=== PATIENT | male | born 1930 | race Caucasian/White ===

== ENCOUNTER 2016-12-16 16:50 | Inpatient (IN) | payer MEDICARE, BC ==
[~2016-12-16] VITALS: Ht 175.3 cm; Wt 62.1 kg
[~2016-12-16 16:50] MED LIST: ACET-868 PO; ALLO100T PO; AMIN30LI2 PO; ASCO500T9 PO; ASPI325T2 PO; ATEN50TA PO; ATOR40TA PO; CLON0.1T PO; CRAN450T3 PO; ENOX30DI SQ; FOLI1TAB16 PO; ONDA4SOL2 PO; PANT40TA2 PO; ZOLP5TAB7 PO
[2016-12-16] MEDS ORDERED: ALBUTEROL FS 2.5 MG/3 ML VIAL.NEB CONTNEB ONE (17:30)
[2016-12-16 17:49] LABS: BASOPHILS # (AUTO) 0.1 /CMM (0.0-0.2); BASOPHILS % (AUTO) 0.7 % (0.0-2.0); DIFF TOTAL % 100 %; EOSINOPHILS # (AUTO) 0.1 /CMM (0.0-0.7); EOSINOPHILS % (AUTO) 1.1 % (0.0-6.0); HEMATOCRIT 41 % (39-51); HEMOGLOBIN 13.3 g/dL (13.5-17.5); LYMPHOCYTES # (AUTO) 1.7 /CMM (0.8-4.8); LYMPHOCYTES % (AUTO) 23.1 % (20.0-44.0); MEAN CORPUSCULAR HEMOGLOBIN 28 PG (26.0-33.0); MEAN CORPUSCULAR HGB CONC 33 g/dl (31.0-36.0); MEAN CORPUSCULAR VOLUME 87 fL (80-96); MONOCYTES # (AUTO) 0.3 /CMM (0.1-1.30); NEUTROPHILS # (AUTO) 5.3 /CMM (1.8-8.9); NEUTROPHILS % (AUTO) 71.1 % (43.0-81.0); PLATELET COUNT (AUTO) 184 /CMM (150-450); RED BLOOD CELL COUNT(AUTO) 4.68 MIL/uL (4.5-6.0); WHITE BLOOD COUNT (AUTO) 7.5 K/uL (4.3-11.0)
[2016-12-16] MEDS ORDERED: ALBUTEROL FS 2.5 MG/3 ML VIAL.NEB ONE (17:58)
[2016-12-16 18:00] LABS: ANION GAP 12 (5-14); CALCIUM, SERUM 8.4 mg/dL (8.5-10.1); CARBON DIOXIDE 27 mmol/L (21-32); CHLORIDE 106 mmol/L (98-107); CREATININE 1.5 mg/dL (0.6-1.3); GLUCOSE 109 mg/dL (74-106); POTASSIUM 3.5 mmol/L (3.5-5.1); SODIUM SERUM 142 mmol/L (136-145); UREA NITROGEN, BLOOD 21 mg/dL (7-18)
[2016-12-16 18:08] LABS: TROPONIN I < 0.017 ng/mL (0.00-0.056)
[2016-12-16 18:46] LABS: *LACTIC ACID REFLEX FLAG YES; LACTIC ACID 2.2 mmol/L (0.4-2.0)
[2016-12-16] MEDS ORDERED: ASPIRIN 81 MG TAB.CHEW ONE (19:28)
[2016-12-16] MEDS ORDERED: FUROSEMIDE 40 MG/4 ML VIAL ONE (19:28)
[2016-12-16] MEDS ORDERED: ASPIRIN 81 MG TAB.CHEW PO ONE (19:30)
[2016-12-16] MEDS ORDERED: FUROSEMIDE 40 MG/4 ML VIAL IV ONE (19:30)
[2016-12-16 20:43] LABS: BILIRUBIN,DIRECT 0.2 mg/dL (0.0-0.2); BILIRUBIN,TOTAL 0.5 mg/dL (0.2-1.0)
[2016-12-16 21:00] VITALS: BP 121/59
[2016-12-16 21:05] VITALS: BP 121/59
[2016-12-16] MEDS ORDERED: ACETAMINOPHEN 325 MG TABLET PO PRN (22:30)
[2016-12-16] MEDS ORDERED: ZOLPIDEM TARTRATE 5 MG TABLET PO PRN (22:30)
[2016-12-16] MEDS ORDERED: ENOXAPARIN SODIUM 40 MG/0.4 ML DISP.SYRIN SQ SCH (22:30)
[2016-12-16] MEDS ORDERED: ONDANSETRON HCL/PF 4 MG/2 ML VIAL IVP PRN (22:30)
[2016-12-16] MEDS ORDERED: BUMETANIDE INJ 4 MG in IV NS 0.9% 24 ML IV ONE (22:30)
[2016-12-16] MEDS ORDERED: CLONIDINE HCL 0.1 MG TABLET PO PRN (22:30)
[2016-12-16] MEDS ORDERED: ONDANSETRON HCL 4 MG/5 ML SOLUTION PO PRN (22:30)
[2016-12-16] MEDS ORDERED: HYDROCODONE/APAP 5/325MG 1 EACH TABLET PO PRN (22:30)
[2016-12-16] MEDS ORDERED: ENOXAPARIN SODIUM 40 MG/0.4 ML DISP.SYRIN SQ ONE (22:50)
[2016-12-16] MEDS ORDERED: BUMETANIDE INJ 0.25 MG/ML VIAL ONE ×2 (22:50→22:55)
[2016-12-16] MEDS ORDERED: SECONDARY IV SET 1 EA INFUS.SET MC ONE (22:56)
[2016-12-16] MEDS ORDERED: IV NS 0.9% 250 ML IV ONE (22:56)
[2016-12-16] MEDS ORDERED: IV SET PRIMARY PUMP SET 1 EA INFUS.SET MC ONE (22:56)
[2016-12-16] MEDS ORDERED: IV NS 0.9% 50 ML IV ONE (22:56)
[2016-12-17] VITALS (7 sets, daily range): BP systolic 105–150; BP diastolic 63–77
[2016-12-17 07:03] LABS: BASOPHILS % (AUTO) 0.2 % (0.0-2.0); DIFF TOTAL % 100 %; EOSINOPHILS # (AUTO) 0.1 /CMM (0.0-0.7); EOSINOPHILS % (AUTO) 0.7 % (0.0-6.0); HEMATOCRIT 40 % (39-51); HEMOGLOBIN 12.8 g/dL (13.5-17.5); LYMPHOCYTES # (AUTO) 2.1 /CMM (0.8-4.8); LYMPHOCYTES % (AUTO) 23.6 % (20.0-44.0); MEAN CORPUSCULAR HEMOGLOBIN 28 PG (26.0-33.0); MEAN CORPUSCULAR HGB CONC 32 g/dl (31.0-36.0); MEAN CORPUSCULAR VOLUME 88 fL (80-96); MONOCYTES # (AUTO) 0.4 /CMM (0.1-1.30); NEUTROPHILS # (AUTO) 6.3 /CMM (1.8-8.9); NEUTROPHILS % (AUTO) 70.5 % (43.0-81.0); PLATELET COUNT (AUTO) 189 /CMM (150-450); WHITE BLOOD COUNT (AUTO) 8.9 K/uL (4.3-11.0)
[2016-12-17 07:16] LABS: POTASSIUM 2.9 mmol/L (3.5-5.1)
[2016-12-17 07:27] LABS: ALBUMIN 2.8 g/dL (3.4-5.0); BILIRUBIN,TOTAL 0.5 mg/dL (0.2-1.0); CALCIUM, SERUM 8.1 mg/dL (8.5-10.1); CREATININE 1.4 mg/dL (0.6-1.3); PHOSPHORUS 4.2 mg/dL (2.5-4.9); TOTAL PROTEIN, SERUM 7.4 g/dL (6.4-8.2)
[2016-12-17 07:32] LABS: THYROID STIMULATING HORMONE 2.499 uIU/mL (0.358-3.74)
[2016-12-17] MEDS: FOLIC ACID 1 MG TABLET PO SCH (09:29)
[2016-12-17] MEDS: ALLOPURINOL 100 MG TABLET PO SCH (09:29)
[2016-12-17] MEDS: ASPIRIN 325 MG TABLET PO SCH (09:29)
[2016-12-17] MEDS: ATENOLOL 50 MG TABLET PO SCH (09:30)
[2016-12-17] MEDS: PANTOPRAZOLE 40 MG TABLET.DR PO SCH (09:30)
[2016-12-17] MEDS: POTASSIUM CHLORIDE 20 MEQ TAB.PRT.SR PO SCH ×3 (13:53→20:52)
[2016-12-17] MEDS ORDERED: MIRT15TA7 PO (14:21)
[2016-12-17] MEDS ORDERED: TAMS-12 PO (14:21)
[2016-12-17] MEDS ORDERED: DONE10TA44 PO (14:21)
[2016-12-17] MEDS ORDERED: FLUD0.1T PO (14:23)
[2016-12-17] MEDS: ATORVASTATIN 40 MG TABLET PO SCH (21:45)
[2016-12-17] MEDS: ENOXAPARIN SODIUM 30 MG/0.3 ML DISP.SYRIN SQ SCH (21:46)
[2016-12-18] VITALS: BP 124/69
[2016-12-18 04:00] VITALS: BP 127/74
[2016-12-18 07:03] VITALS: BP 118/67
[2016-12-18 08:00] VITALS: BP 118/67
[2016-12-18 09:08] LABS: CALCIUM, SERUM 8.4 mg/dL (8.5-10.1); CREATININE 1.3 mg/dL (0.6-1.3); POTASSIUM 4.4 mmol/L (3.5-5.1)
[2016-12-18] MEDS: ASPIRIN 325 MG TABLET PO SCH (09:23)
[2016-12-18] MEDS: ATENOLOL 50 MG TABLET PO SCH (09:24)
[2016-12-18] MEDS: FOLIC ACID 1 MG TABLET PO SCH (09:25)
[2016-12-18] MEDS: PANTOPRAZOLE 40 MG TABLET.DR PO SCH (09:25)
[2016-12-18] MEDS: ALLOPURINOL 100 MG TABLET PO SCH (09:25)
[2016-12-18 16:00] VITALS: BP 120/65
[2016-12-18] MEDS ORDERED: FUROSEMIDE 40 MG/4 ML VIAL IV ONE (16:00)
[2016-12-18 20:00] VITALS: BP 104/62
[2016-12-18] MEDS: ATORVASTATIN 40 MG TABLET PO SCH (21:34)
[2016-12-18] MEDS: ENOXAPARIN SODIUM 30 MG/0.3 ML DISP.SYRIN SQ SCH (21:34)
[2016-12-19 07:40] LABS: CALCIUM, SERUM 8.5 mg/dL (8.5-10.1); CREATININE 1.4 mg/dL (0.6-1.3); POTASSIUM 4.3 mmol/L (3.5-5.1)
[2016-12-19 08:00] VITALS: BP 103/62
[2016-12-19] MEDS: ATENOLOL 50 MG TABLET PO SCH (09:00)
[2016-12-19] MEDS: ASPIRIN 325 MG TABLET PO SCH (09:22)
[2016-12-19] MEDS: FOLIC ACID 1 MG TABLET PO SCH (09:22)
[2016-12-19] MEDS: PANTOPRAZOLE 40 MG TABLET.DR PO SCH (09:22)
[2016-12-19] MEDS: ALLOPURINOL 100 MG TABLET PO SCH (09:23)
[2016-12-19 16:00] VITALS: BP 103/61
[2016-12-19 20:00] VITALS: BP 110/69
[2016-12-19] MEDS: ATORVASTATIN 40 MG TABLET PO SCH (21:07)
[2016-12-19] MEDS: ENOXAPARIN SODIUM 30 MG/0.3 ML DISP.SYRIN SQ SCH (21:09)
[2016-12-20 08:00] VITALS: BP 138/72
[2016-12-20 08:02] LABS: CALCIUM, SERUM 8.9 mg/dL (8.5-10.1); CREATININE 1.5 mg/dL (0.6-1.3); POTASSIUM 4.5 mmol/L (3.5-5.1)
[2016-12-20] MEDS: ASPIRIN 325 MG TABLET PO SCH (09:05)
[2016-12-20] MEDS: FOLIC ACID 1 MG TABLET PO SCH (09:05)
[2016-12-20] MEDS: ATENOLOL 50 MG TABLET PO SCH (09:06)
[2016-12-20] MEDS: ALLOPURINOL 100 MG TABLET PO SCH (09:06)
[2016-12-20] MEDS: PANTOPRAZOLE 40 MG TABLET.DR PO SCH (09:07)
[2016-12-20] MEDS ORDERED: FUROSEMIDE 20 MG/2 ML VIAL IV ONE (10:30)
[2016-12-20 16:00] VITALS: BP 101/61
[2016-12-20 20:00] VITALS: BP 125/70
== END 2016-12-20 20:20 | disposition home health service (06) | DRG 291 ==
LOC: EDSEX 16:54 → ER 16:54 → TELE 21:18 → MED 12-18 10:48
PROVIDERS: ADMIT Nurse Practitioner Acute Care; ATTEND Nurse Practitioner Acute Care
DX: I13.0 Hypertensive heart and chronic kidney disease with heart failure and stage 1 through stage 4 chronic kidney disease, or unspecified chronic kidney disease (principal); I50.31 Acute diastolic (congestive) heart failure; N17.9 Acute kidney failure, unspecified; E87.2 Acidosis; N39.0 Urinary tract infection, site not specified; J98.11 Atelectasis; N18.9 Chronic kidney disease, unspecified; E78.5 Hyperlipidemia, unspecified; I25.10 Atherosclerotic heart disease of native coronary artery without angina pectoris; R09.02 Hypoxemia; F03.90 Unspecified dementia, unspecified severity, without behavioral disturbance, psychotic disturbance, mood disturbance, and anxiety; H40.9 Unspecified glaucoma; N40.0 Benign prostatic hyperplasia without lower urinary tract symptoms; I34.0 Nonrheumatic mitral (valve) insufficiency; E87.6 Hypokalemia; E78.00 Pure hypercholesterolemia, unspecified
CPT/HCPCS: 36415; 71010-TC; 80048-TC; 80053-TC; 80061-TC; 82247-TC; 82248-TC; 83540-TC; 83605-TC; 83735-TC; 83880; 84100-TC; 84443-TC; 84484-TC; 85025-TC; 87040-TC; 87081-TC; 87400; 93307-TC; 94799-TC; 97001-TC; 97116-TC; 97530-TC; A4216; A4606; J1650; J1940; J3490; J7030; J7050; Q0162; Z7610

== ENCOUNTER 2017-01-02 09:48 | Inpatient (IN) | payer MEDICARE, BC ==
[~2017-01-02] VITALS: Ht 182.9 cm; Wt 61.7 kg
[~2017-01-02 09:48] MED LIST changes: -AMIN30LI2 PO; -ASCO500T9 PO; -CRAN450T3 PO; +DONE10TA44 PO; +FLUD0.1T PO; +MIRT15TA7 PO; +TAMS-12 PO
[2017-01-02] MEDS ORDERED: IV NS 0.9% 1,000 ML ONE ×2 (10:17→11:58)
[2017-01-02] MEDS ORDERED: FURO40TA5 PO (10:23)
[2017-01-02] MEDS ORDERED: ATOR10TA PO (10:23)
[2017-01-02] MEDS ORDERED: IV NS 0.9% 1,000 ML BAG IV ONE ×2 (10:30→12:00)
[2017-01-02] MEDS ORDERED: LIDOCAINE 2% JEL UROJET 10 ML MM ONE ×2 (10:46→11:00)
[2017-01-02 11:22] LABS: BASOPHILS # (AUTO) 0.2 /CMM (0.0-0.2); BASOPHILS % (AUTO) 1.4 % (0.0-2.0); DIFF TOTAL % 100 %; EOSINOPHILS # (AUTO) 0.2 /CMM (0.0-0.7); EOSINOPHILS % (AUTO) 0.9 % (0.0-6.0); HEMATOCRIT 50 % (39-51); HEMOGLOBIN 16.3 g/dL (13.5-17.5); LYMPHOCYTES # (AUTO) 2.1 /CMM (0.8-4.8); LYMPHOCYTES % (AUTO) 12.6 % (20.0-44.0); MEAN CORPUSCULAR HEMOGLOBIN 29 PG (26.0-33.0); MEAN CORPUSCULAR HGB CONC 33 g/dl (31.0-36.0); MEAN CORPUSCULAR VOLUME 89 fL (80-96); MONOCYTES # (AUTO) 0.7 /CMM (0.1-1.30); MONOCYTES % (AUTO) 4.3 % (2.0-12.0); NEUTROPHILS # (AUTO) 13.5 /CMM (1.8-8.9); NEUTROPHILS % (AUTO) 80.8 % (43.0-81.0); PLATELET COUNT (AUTO) 174 /CMM (150-450); RED BLOOD CELL COUNT(AUTO) 5.61 MIL/uL (4.5-6.0); WHITE BLOOD COUNT (AUTO) 16.7 K/uL (4.3-11.0)
[2017-01-02 11:23] LABS: ANION GAP 14 (5-14); CALCIUM, SERUM 9.2 mg/dL (8.5-10.1); CARBON DIOXIDE 30 mmol/L (21-32); CHLORIDE 114 mmol/L (98-107); CREATININE 2.6 mg/dL (0.6-1.3); GLUCOSE 129 mg/dL (74-106); POTASSIUM 4.4 mmol/L (3.5-5.1); SODIUM SERUM 154 mmol/L (136-145); UREA NITROGEN, BLOOD 63 mg/dL (7-18)
[2017-01-02 11:28] LABS: ALANINE AMINOTRANSFERASE 19 U/L (12-78); ALBUMIN 2.5 g/dL (3.4-5.0); ASPARTATE AMINOTRANSFERASE 19 U/L (15-37); BILIRUBIN,DIRECT 0.1 mg/dL (0.0-0.2); BILIRUBIN,TOTAL 0.5 mg/dL (0.2-1.0); INDIRECT BILIRUBIN 0.4 mg/dL (0.0-1.1); TOTAL PROTEIN, SERUM 8.6 g/dL (6.4-8.2)
[2017-01-02 11:30] LABS: TROPONIN I < 0.017 ng/mL (0.00-0.056)
[2017-01-02 11:56] LABS: LACTIC ACID 3.3 mmol/L (0.4-2.0)
[2017-01-02] MEDS ORDERED: IV SET PRIMARY PUMP SET 1 EA INFUS.SET MC ONE ×3 (11:58→15:24)
[2017-01-02] MEDS ORDERED: CEFTRIAXONE 1GM BAG (ER ONLY) 50 ML IV ONE (11:58)
[2017-01-02] MEDS ORDERED: CEFTRIAXONE 1GM BAG (ER ONLY) 1 GM/50 ML PIGGYBACK IV ONE (12:00)
[2017-01-02 12:09] LABS: *LACTIC ACID REFLEX FLAG YES
[2017-01-02 12:12] LABS: INR 1.06 (0.87-1.13); PROTHROMBIN TIME 11.1 SECS (9.5-12.7)
[2017-01-02] MEDS ORDERED: IV NS 0.9% 1,000 ML IV PRN ×2 (12:13→12:30)
[2017-01-02 12:30] VITALS: BP 97/66
[2017-01-02] MEDS ORDERED: MAG HYDROX/AL HYDROX/SIMETH 30 ML UDC PO PRN (12:30)
[2017-01-02] MEDS ORDERED: HYDROCODONE/APAP 5/325MG 1 EACH TABLET PO PRN (12:30)
[2017-01-02] MEDS ORDERED: ACETAMINOPHEN 325 MG TABLET PO PRN (12:30)
[2017-01-02] MEDS ORDERED: ZOLPIDEM TARTRATE 5 MG TABLET PO PRN (12:30)
[2017-01-02] MEDS ORDERED: ONDANSETRON HCL/PF 4 MG/2 ML VIAL IVP PRN (12:30)
[2017-01-02] MEDS ORDERED: MAGNESIUM HYDROXIDE 30 ML UDC PO PRN (12:30)
[2017-01-02] MEDS ORDERED: Z GUARD REMEDY 2 OZ OINT TP PRN (12:30)
[2017-01-02] MEDS ORDERED: ENOXAPARIN SODIUM 40 MG/0.4 ML DISP.SYRIN SQ SCH (12:30)
[2017-01-02 12:50] LABS: ADD UA MICROSCOPIC YES; KETONES,URINE Negative (NEGATIVE); LEUKOCYTE ESTERASE ,URINE Trace (NEGATIVE); PH,URINE 7.5 (5.0-8.0)
[2017-01-02] MEDS: ENOXAPARIN SODIUM 30 MG/0.3 ML DISP.SYRIN SQ SCH (13:00)
[2017-01-02 13:02] LABS: ADD URINE CULTURE NO
[2017-01-02 15:00] VITALS: BP 87/55
[2017-01-02] MEDS ORDERED: SECONDARY IV SET 1 EA INFUS.SET MC ONE (15:24)
[2017-01-02] MEDS: IV D5/0.45 NACL 1,000 ML IV PRN (15:35)
[2017-01-02] MEDS: AZITHROMYCIN 500 MG in IV D5W 250 ML IV SCH (15:58)
[2017-01-02 16:00] VITALS: BP 102/52
[2017-01-02] MEDS: FLUDROCORTISONE 0.1 MG TABLET PO SCH (17:00)
[2017-01-02 20:00] VITALS: BP 96/47
[2017-01-02] MEDS: MIRTAZAPINE 15 MG TABLET PO SCH (21:47)
[2017-01-02] MEDS: DONEPEZIL 5 MG TABLET PO SCH (21:47)
[2017-01-02] MEDS: ALBUTEROL FS 2.5 MG/3 ML VIAL.NEB NEB PRN (22:33)
[2017-01-03] VITALS: BP 88/54
[2017-01-03] MEDS: IV D5/0.45 NACL 1,000 ML IV PRN ×2 (01:38→12:49)
[2017-01-03 04:00] VITALS: BP 92/49
[2017-01-03 07:41] LABS: BASOPHILS % (AUTO) 0.1 % (0.0-2.0); DIFF TOTAL % 100 %; EOSINOPHILS # (AUTO) 0.2 /CMM (0.0-0.7); EOSINOPHILS % (AUTO) 1.7 % (0.0-6.0); HEMATOCRIT 33 % (39-51); HEMOGLOBIN 10.9 g/dL (13.5-17.5); LYMPHOCYTES # (AUTO) 2.4 /CMM (0.8-4.8); LYMPHOCYTES % (AUTO) 18.6 % (20.0-44.0); MEAN CORPUSCULAR HEMOGLOBIN 28 PG (26.0-33.0); MEAN CORPUSCULAR HGB CONC 33 g/dl (31.0-36.0); MEAN CORPUSCULAR VOLUME 87 fL (80-96); MONOCYTES # (AUTO) 0.5 /CMM (0.1-1.30); MONOCYTES % (AUTO) 4.3 % (2.0-12.0); NEUTROPHILS # (AUTO) 9.5 /CMM (1.8-8.9); NEUTROPHILS % (AUTO) 75.3 % (43.0-81.0); PLATELET COUNT (AUTO) 180 /CMM (150-450); RED BLOOD CELL COUNT(AUTO) 3.85 MIL/uL (4.5-6.0); WHITE BLOOD COUNT (AUTO) 12.6 K/uL (4.3-11.0)
[2017-01-03 08:00] VITALS: BP 95/58
[2017-01-03] MEDS: FLUDROCORTISONE 0.1 MG TABLET PO SCH ×2 (08:11→17:00)
[2017-01-03] MEDS: ATORVASTATIN 10 MG TABLET PO SCH (08:11)
[2017-01-03] MEDS: PANTOPRAZOLE 40 MG TABLET.DR PO SCH (08:11)
[2017-01-03] MEDS: TAMSULOSIN 0.4 MG CAP.SR.24H PO SCH (08:11)
[2017-01-03] MEDS: ENOXAPARIN SODIUM 30 MG/0.3 ML DISP.SYRIN SQ SCH (08:12)
[2017-01-03 08:24] LABS: CALCIUM, SERUM 7.6 mg/dL (8.5-10.1); CREATININE 1.8 mg/dL (0.6-1.3); PHOSPHORUS 3.5 mg/dL (2.5-4.9); POTASSIUM 3.7 mmol/L (3.5-5.1)
[2017-01-03 12:00] VITALS: BP 91/48
[2017-01-03] MEDS: AZITHROMYCIN 500 MG in IV D5W 250 ML IV SCH (12:23)
[2017-01-03] MEDS ORDERED: SECONDARY IV SET 1 EA INFUS.SET MC ONE (12:28)
[2017-01-03] MEDS: CEFTRIAXONE 1 G in IV D5W 50 ML IV SCH (12:49)
[2017-01-03 16:00] VITALS: BP_SYST 78; BP_SYST 92; BP_DIAS 38; BP_DIAS 48
[2017-01-03 20:00] VITALS: BP 106/50
[2017-01-03] MEDS: ALBUTEROL FS 2.5 MG/3 ML VIAL.NEB NEB PRN (20:33)
[2017-01-03] MEDS: MIRTAZAPINE 15 MG TABLET PO SCH (22:11)
[2017-01-03] MEDS: DONEPEZIL 5 MG TABLET PO SCH (22:11)
[2017-01-04] VITALS: BP 86/51
[2017-01-04] MEDS ORDERED: IV SET PRIMARY PUMP SET 1 EA INFUS.SET MC ONE (00:51)
[2017-01-04] MEDS ORDERED: IV D5W 1,000 ML IV ONE (00:53)
[2017-01-04] MEDS: IV D5W 1,000 ML IV SCH ×2 (00:57→11:16)
[2017-01-04] MEDS ORDERED: ALBUTEROL FS 2.5 MG/0.5 ML VIAL.NEB ONE (01:16)
[2017-01-04] MEDS ORDERED: IPRATROPIUM NEB FS 0.5 MG/2.5 ML AMPUL.NEB ONE (01:17)
[2017-01-04] MEDS: IPRATROPIUM NEB FS 0.5 MG/2.5 ML AMPUL.NEB NEB SCH ×4 (01:34→20:04)
[2017-01-04] MEDS: ALBUTEROL FS 2.5 MG/0.5 ML VIAL.NEB NEB SCH ×4 (01:35→20:04)
[2017-01-04 04:00] VITALS: BP 101/47
[2017-01-04 07:17] LABS: KETONES,URINE NEGATIVE (NEGATIVE); LEUKOCYTE ESTERASE ,URINE NEGATIVE (NEGATIVE); PH,URINE 6.5 (5.0-8.0)
[2017-01-04 07:19] LABS: ADD UA MICROSCOPIC YES
[2017-01-04 07:25] LABS: ADD URINE CULTURE NO; WBC,URINE NONE SEEN /HPF (0-3)
[2017-01-04 08:00] VITALS: BP 114/63
[2017-01-04 08:26] LABS: CREATININE 1.5 mg/dL (0.6-1.3); PHOSPHORUS 3.5 mg/dL (2.5-4.9)
[2017-01-04] MEDS: TAMSULOSIN 0.4 MG CAP.SR.24H PO SCH (08:38)
[2017-01-04] MEDS: PANTOPRAZOLE 40 MG TABLET.DR PO SCH (08:38)
[2017-01-04] MEDS: ATORVASTATIN 10 MG TABLET PO SCH (08:38)
[2017-01-04] MEDS: FLUDROCORTISONE 0.1 MG TABLET PO SCH ×2 (08:38→17:48)
[2017-01-04] MEDS: ENOXAPARIN SODIUM 30 MG/0.3 ML DISP.SYRIN SQ SCH (08:39)
[2017-01-04] MEDS ORDERED: Z GUARD REMEDY 2 OZ OINT TP PRN (11:00)
[2017-01-04 11:16] LABS: BASOPHILS % (AUTO) 0.4 % (0.0-2.0); DIFF TOTAL % 100 %; EOSINOPHILS # (AUTO) 0.2 /CMM (0.0-0.7); EOSINOPHILS % (AUTO) 1.7 % (0.0-6.0); HEMATOCRIT 35 % (39-51); HEMOGLOBIN 11.4 g/dL (13.5-17.5); LYMPHOCYTES # (AUTO) 1.8 /CMM (0.8-4.8); LYMPHOCYTES % (AUTO) 16.7 % (20.0-44.0); MEAN CORPUSCULAR HEMOGLOBIN 28 PG (26.0-33.0); MEAN CORPUSCULAR HGB CONC 33 g/dl (31.0-36.0); MEAN CORPUSCULAR VOLUME 87 fL (80-96); MONOCYTES # (AUTO) 0.5 /CMM (0.1-1.30); NEUTROPHILS # (AUTO) 8.3 /CMM (1.8-8.9); NEUTROPHILS % (AUTO) 76.2 % (43.0-81.0); PLATELET COUNT (AUTO) 179 /CMM (150-450); RED BLOOD CELL COUNT(AUTO) 4.03 MIL/uL (4.5-6.0); WHITE BLOOD COUNT (AUTO) 10.9 K/uL (4.3-11.0)
[2017-01-04] MEDS: HYDROGEL DRESSING 90 GM TUBE TP SCH (11:19)
[2017-01-04] MEDS: CEFTRIAXONE 1 G in IV D5W 50 ML IV SCH (11:26)
[2017-01-04 12:00] VITALS: BP 95/45
[2017-01-04] MEDS: AZITHROMYCIN 500 MG in IV D5W 250 ML IV SCH (12:58)
[2017-01-04 16:00] VITALS: BP 95/45
[2017-01-04] MEDS: Z GUARD REMEDY 2 OZ OINT TP SCH (17:51)
[2017-01-04 20:00] VITALS: BP 101/45
[2017-01-04] MEDS: DONEPEZIL 5 MG TABLET PO SCH (21:02)
[2017-01-04] MEDS: MIRTAZAPINE 15 MG TABLET PO SCH (21:02)
[2017-01-05] VITALS: BP 105/54
[2017-01-05] MEDS: IV D5W 1,000 ML IV SCH (00:29)
[2017-01-05] MEDS: IPRATROPIUM NEB FS 0.5 MG/2.5 ML AMPUL.NEB NEB SCH ×4 (02:11→20:01)
[2017-01-05] MEDS: ALBUTEROL FS 2.5 MG/0.5 ML VIAL.NEB NEB SCH ×4 (02:12→20:01)
[2017-01-05 04:00] VITALS: BP 93/45
[2017-01-05 08:00] VITALS: BP 113/59
[2017-01-05] MEDS: Z GUARD REMEDY 2 OZ OINT TP SCH ×2 (09:21→17:18)
[2017-01-05] MEDS: HYDROGEL DRESSING 90 GM TUBE TP SCH (09:22)
[2017-01-05] MEDS: ENOXAPARIN SODIUM 30 MG/0.3 ML DISP.SYRIN SQ SCH (09:23)
[2017-01-05 09:28] LABS: BASOPHILS # (AUTO) 0.1 /CMM (0.0-0.2); BASOPHILS % (AUTO) 0.6 % (0.0-2.0); DIFF TOTAL % 100 %; EOSINOPHILS # (AUTO) 0.2 /CMM (0.0-0.7); EOSINOPHILS % (AUTO) 2.2 % (0.0-6.0); HEMATOCRIT 32 % (39-51); HEMOGLOBIN 10.5 g/dL (13.5-17.5); MEAN CORPUSCULAR HEMOGLOBIN 28 PG (26.0-33.0); MEAN CORPUSCULAR HGB CONC 33 g/dl (31.0-36.0); MEAN CORPUSCULAR VOLUME 85 fL (80-96); MONOCYTES # (AUTO) 0.5 /CMM (0.1-1.30); MONOCYTES % (AUTO) 5.7 % (2.0-12.0); NEUTROPHILS % (AUTO) 68.5 % (43.0-81.0); PLATELET COUNT (AUTO) 158 /CMM (150-450); RED BLOOD CELL COUNT(AUTO) 3.75 MIL/uL (4.5-6.0); WHITE BLOOD COUNT (AUTO) 8.8 K/uL (4.3-11.0)
[2017-01-05] MEDS: FLUDROCORTISONE 0.1 MG TABLET PO SCH ×2 (09:40→17:17)
[2017-01-05] MEDS: ATORVASTATIN 10 MG TABLET PO SCH (09:40)
[2017-01-05] MEDS: TAMSULOSIN 0.4 MG CAP.SR.24H PO SCH (09:41)
[2017-01-05] MEDS: PANTOPRAZOLE 40 MG TABLET.DR PO SCH (09:41)
[2017-01-05 09:42] LABS: CALCIUM, SERUM 7.4 mg/dL (8.5-10.1); CREATININE 1.4 mg/dL (0.6-1.3); POTASSIUM 3.1 mmol/L (3.5-5.1)
[2017-01-05] MEDS: IV D5W 1,000 ML IV PRN (11:13)
[2017-01-05] MEDS: CEFTRIAXONE 1 G in IV D5W 50 ML IV SCH (11:13)
[2017-01-05] MEDS: AZITHROMYCIN 500 MG in IV D5W 250 ML IV SCH (13:35)
[2017-01-05 16:00] VITALS: BP 115/48
[2017-01-05] MEDS ORDERED: Magnesium 1GM/D5W 100ML PREMIX PIGGYBACK IV ONE (16:00)
[2017-01-05] MEDS ORDERED: Magnesium 1GM/D5W 100ML PREMIX 100 ML IV SCH (16:30)
[2017-01-05] MEDS ORDERED: POTASSIUM CHLORIDE 20 MEQ TAB.PRT.SR PO ONE (16:30)
[2017-01-05] MEDS ORDERED: IV SET PRIMARY PUMP SET 1 EA INFUS.SET MC ONE (16:57)
[2017-01-05] MEDS ORDERED: SECONDARY IV SET 1 EA INFUS.SET MC ONE (17:17)
[2017-01-05 20:00] VITALS: BP 117/55
[2017-01-05] MEDS: DONEPEZIL 5 MG TABLET PO SCH (21:28)
[2017-01-05] MEDS: MIRTAZAPINE 15 MG TABLET PO SCH (21:28)
[2017-01-06] MEDS: ALBUTEROL FS 2.5 MG/0.5 ML VIAL.NEB NEB SCH ×4 (02:00→19:38)
[2017-01-06] MEDS: IPRATROPIUM NEB FS 0.5 MG/2.5 ML AMPUL.NEB NEB SCH ×4 (02:00→19:38)
[2017-01-06 04:00] VITALS: BP 83/41
[2017-01-06] MEDS ORDERED: IV NS 0.9% 500 ML IV ONE (05:30)
[2017-01-06 06:00] VITALS: BP 106/54
[2017-01-06 07:52] LABS: BASOPHILS % (AUTO) 0.4 % (0.0-2.0); DIFF TOTAL % 100 %; HEMATOCRIT 34 % (39-51); HEMOGLOBIN 10.9 g/dL (13.5-17.5); LYMPHOCYTES % (AUTO) 22.5 % (20.0-44.0); MEAN CORPUSCULAR HEMOGLOBIN 28 PG (26.0-33.0); MEAN CORPUSCULAR HGB CONC 32 g/dl (31.0-36.0); MEAN CORPUSCULAR VOLUME 88 fL (80-96); MONOCYTES # (AUTO) 0.6 /CMM (0.1-1.30); MONOCYTES % (AUTO) 7.3 % (2.0-12.0); NEUTROPHILS # (AUTO) 6.1 /CMM (1.8-8.9); NEUTROPHILS % (AUTO) 69.8 % (43.0-81.0); RED BLOOD CELL COUNT(AUTO) 3.88 MIL/uL (4.5-6.0); WHITE BLOOD COUNT (AUTO) 8.7 K/uL (4.3-11.0)
[2017-01-06 08:00] VITALS: BP 95/50
[2017-01-06] MEDS: AZITHROMYCIN 250 MG TABLET PO SCH (08:16)
[2017-01-06] MEDS: TAMSULOSIN 0.4 MG CAP.SR.24H PO SCH (08:16)
[2017-01-06] MEDS: FLUDROCORTISONE 0.1 MG TABLET PO SCH ×2 (08:16→17:31)
[2017-01-06] MEDS: ATORVASTATIN 10 MG TABLET PO SCH (08:16)
[2017-01-06] MEDS: PANTOPRAZOLE 40 MG TABLET.DR PO SCH (08:17)
[2017-01-06] MEDS: Z GUARD REMEDY 2 OZ OINT TP SCH ×2 (08:18→17:30)
[2017-01-06] MEDS: ENOXAPARIN SODIUM 30 MG/0.3 ML DISP.SYRIN SQ SCH (08:18)
[2017-01-06] MEDS: HYDROGEL DRESSING 90 GM TUBE TP SCH (08:18)
[2017-01-06 09:15] LABS: BAND % (MANUAL) 1 % (0.0-5.0); EOSINOPHILS % (MANUAL) 3 % (0-4); LYMPHOCYTES % (MANUAL) 28 % (16-48)
[2017-01-06 09:16] LABS: PLATELET ESTIMATE DECREASED
[2017-01-06 09:17] LABS: ANISOCYTOSIS 1+
[2017-01-06 09:19] VITALS: BP 91/60
[2017-01-06 09:29] LABS: PLATELET COUNT (AUTO) 92 /CMM (150-450)
[2017-01-06 09:36] LABS: ALBUMIN 1.8 g/dL (3.4-5.0); BILIRUBIN,TOTAL 0.3 mg/dL (0.2-1.0); CALCIUM, SERUM 7.5 mg/dL (8.5-10.1); CREATININE 1.3 mg/dL (0.6-1.3); PHOSPHORUS 3.1 mg/dL (2.5-4.9); POTASSIUM 4.4 mmol/L (3.5-5.1); TOTAL PROTEIN, SERUM 5.8 g/dL (6.4-8.2)
[2017-01-06] MEDS: IV D5W 1,000 ML IV PRN ×2 (12:54→19:46)
[2017-01-06] MEDS: CEFTRIAXONE 1 G in IV D5W 50 ML IV SCH (12:54)
[2017-01-06] MEDS ORDERED: AZIT250T PO (14:31)
[2017-01-06] MEDS ORDERED: [UNRECOGNIZED DRUG - CODE] PO (14:31)
[2017-01-06 16:00] VITALS: BP_SYST 84; BP_SYST 98; BP_DIAS 45; BP_DIAS 47
[2017-01-06 20:00] VITALS: BP 96/48
[2017-01-06] MEDS: MIRTAZAPINE 15 MG TABLET PO SCH (21:04)
[2017-01-06] MEDS: DONEPEZIL 5 MG TABLET PO SCH (21:04)
[2017-01-07] MEDS: IPRATROPIUM NEB FS 0.5 MG/2.5 ML AMPUL.NEB NEB SCH ×3 (02:02→13:27)
[2017-01-07] MEDS: ALBUTEROL FS 2.5 MG/0.5 ML VIAL.NEB NEB SCH ×3 (02:02→13:27)
[2017-01-07] MEDS: IV D5W 1,000 ML IV PRN (05:43)
[2017-01-07 08:00] VITALS: BP 105/57
[2017-01-07] MEDS: TAMSULOSIN 0.4 MG CAP.SR.24H PO SCH (09:17)
[2017-01-07] MEDS: AZITHROMYCIN 250 MG TABLET PO SCH (09:17)
[2017-01-07] MEDS: HYDROGEL DRESSING 90 GM TUBE TP SCH (09:18)
[2017-01-07] MEDS: ATORVASTATIN 10 MG TABLET PO SCH (09:18)
[2017-01-07] MEDS: PANTOPRAZOLE 40 MG TABLET.DR PO SCH (09:18)
[2017-01-07] MEDS: Z GUARD REMEDY 2 OZ OINT TP SCH ×2 (09:18→16:05)
[2017-01-07] MEDS: FLUDROCORTISONE 0.1 MG TABLET PO SCH ×2 (09:18→16:05)
[2017-01-07] MEDS: ENOXAPARIN SODIUM 30 MG/0.3 ML DISP.SYRIN SQ SCH (09:27)
[2017-01-07] MEDS: CEFTRIAXONE 1 G in IV D5W 50 ML IV SCH (12:31)
[2017-01-07 16:00] VITALS: BP 99/52
[2017-01-07] MEDS ORDERED: LACTOBACILLUS RHAMNOSUS GG 1 EACH CAP.SPRINK PO SCH (17:00)
[2017-01-07 17:57] LABS: CSF GLUCOSE 62 mg/dL (40-70); CSF PROTEIN 58.8 mg/dL (15-45)
[2017-01-07 18:29] LABS: CSF APPEARANCE CLEAR (CLEAR); CSF COLOR COLORLESS (COLORLESS); CSF WHITE BLOOD CELL COUNT 0 /cumm (0-5)
[2017-01-07 18:32] LABS: CSF WHITE BLOOD CELL COUNT 1 /cumm (0-5)
[2017-01-08 15:14] LABS: LDH CSF/BODY FLUID 37 IU/L (.)
== END 2017-01-07 18:46 | disposition home or self-care (01) | DRG 871 ==
LOC: ER 09:53 → TELE1 12:00 → MEDSG1 01-05 07:41
PROVIDERS: ADMIT Internal Medicine; ATTEND Internal Medicine
PROC: 009U3ZX Drainage of Spinal Canal, Percutaneous Approach, Diagnostic (ICD-10-PCS; principal; 2017-01-07)
DX: A41.9 Sepsis, unspecified organism (principal); N17.0 Acute kidney failure with tubular necrosis; J18.9 Pneumonia, unspecified organism; G93.40 Encephalopathy, unspecified; I50.32 Chronic diastolic (congestive) heart failure; I13.0 Hypertensive heart and chronic kidney disease with heart failure and stage 1 through stage 4 chronic kidney disease, or unspecified chronic kidney disease; E87.0 Hyperosmolality and hypernatremia; E44.0 Moderate protein-calorie malnutrition; E87.2 Acidosis; N40.0 Benign prostatic hyperplasia without lower urinary tract symptoms; F03.90 Unspecified dementia, unspecified severity, without behavioral disturbance, psychotic disturbance, mood disturbance, and anxiety; E78.5 Hyperlipidemia, unspecified; M54.5 Low back pain; G89.29 Other chronic pain; N18.3 Chronic kidney disease, stage 3 (moderate); M81.0 Age-related osteoporosis without current pathological fracture; D64.9 Anemia, unspecified; E11.22 Type 2 diabetes mellitus with diabetic chronic kidney disease; E83.42 Hypomagnesemia; E83.51 Hypocalcemia; E86.1 Hypovolemia; E87.6 Hypokalemia; F32.9 Major depressive disorder, single episode, unspecified; H40.9 Unspecified glaucoma; I34.0 Nonrheumatic mitral (valve) insufficiency; K21.9 Gastro-esophageal reflux disease without esophagitis
CPT/HCPCS: 36415; 71010-TC; 80048-TC; 80053-TC; 80061-TC; 80076-TC; 81000-TC; 83605-TC; 83735-TC; 84100-TC; 84484-TC; 85025-TC; 85730-TC; 86592; 87040-TC; 87081-TC; 87086-TC; 89051-TC; 94799-TC; 97001-TC; 97116-TC; 97530-TC; A4349; A4606; A6248; A6403; J0456; J0696; J1650; J3475; J3490; J7030; J7060; J7070; Z7610

== ENCOUNTER 2018-03-09 10:30 | Emergency (ER) | payer MEDICARE, BC ==
[~2018-03-09] VITALS: Ht 177.8 cm; Wt 74.8 kg
[~2018-03-09 10:30] MED LIST changes: -ACET-868 PO; -ALLO100T PO; -ASPI325T2 PO; -ATEN50TA PO; +ATOR10TA PO; -ATOR40TA PO; +AZIT250T PO; -CLON0.1T PO; -ENOX30DI SQ; -FOLI1TAB16 PO; -ONDA4SOL2 PO; -PANT40TA2 PO; -ZOLP5TAB7 PO; +[UNRECOGNIZED DRUG - CODE] PO
--- NOTE | 2018-03-09 10:40 | NUR ---
aaox3, [id number] from restaurant: s/p witnessed syncope. denies any injury or pain at this moment. RR is even and unlabored with nad noted. 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 Skin is warm and dry. Awaiting md for eval.
[2018-03-09] MEDS ORDERED: IV NS 0.9% 1,000 ML BAG IV ONE (11:00)
[2018-03-09 11:02] LABS: BASOPHILS % (AUTO) 0.8 % (0.0-2.0); EOSINOPHILS % (AUTO) 2.7 % (0.0-6.0); HEMATOCRIT 37 % (39-51); HEMOGLOBIN 12.2 g/dL (13.5-17.5); LYMPHOCYTES # (AUTO) 1.5 /CMM (0.8-4.8); LYMPHOCYTES % (AUTO) 27.4 % (20.0-44.0); MEAN CORPUSCULAR HGB CONC 33 g/dl (31.0-36.0); MEAN CORPUSCULAR VOLUME 88 fL (80-96); MONOCYTES # (AUTO) 0.2 /CMM (0.1-1.30); MONOCYTES % (AUTO) 4.4 % (2.0-12.0); NEUTROPHILS # (AUTO) 3.7 /CMM (1.8-8.9); NEUTROPHILS % (AUTO) 64.7 % (43.0-81.0); PLATELET COUNT (AUTO) 175 /CMM (150-450); RDW COEFFICIENT OF VARIATION 14.7 (11.5-15.0); RED BLOOD CELL COUNT(AUTO) 4.21 MIL/uL (4.5-6.0); WHITE BLOOD COUNT (AUTO) 5.5 K/uL (4.3-11.0)
[2018-03-09 11:15] LABS: CALCIUM, SERUM 8.3 mg/dL (8.5-10.1); CARBON DIOXIDE 24 mmol/L (21-32); CHLORIDE 111 mmol/L (98-107); CREATININE 1.4 mg/dL (0.6-1.3); GLUCOSE 132 mg/dL (74-106); INR 0.99 (0.85-1.15); POTASSIUM 4.3 mmol/L (3.5-5.1); SODIUM SERUM 141 mmol/L (136-145); UREA NITROGEN, BLOOD 21 mg/dL (7-18)
[2018-03-09 11:19] LABS: TROPONIN I < 0.017 ng/mL (0.00-0.056)
[2018-03-09 11:21] LABS: ALANINE AMINOTRANSFERASE 16 U/L (12-78); ALBUMIN 2.9 g/dL (3.4-5.0); ALKALINE PHOSPHATASE 93 U/L (46-116); ASPARTATE AMINOTRANSFERASE 12 U/L (15-37); BILIRUBIN,DIRECT 0.1 mg/dL (0.0-0.2); BILIRUBIN,TOTAL 0.4 mg/dL (0.2-1.0)
--- NOTE | 2018-03-09 11:30 | NUR ---
Patient is resting comfortably in bed with eyes closed. Easily aroused. VSS
--- NOTE | 2018-03-09 12:40 | NUR ---
IV removed. Catheter intact and site benign. Pressure and 4x4 applied to site. No bleeding noted.
[2018-03-09 12:45] VITALS: BP 125/70
--- NOTE | 2018-03-09 12:45 | NUR ---
Patient discharged to home in stable condition. Written and verbal after care instructions given. Patient verbalizes understanding of instruction.
[2018-05-31] MEDS ORDERED: ALLO100T PO (11:18)
[2018-05-31] MEDS ORDERED: ALPR1TAB2 PO (11:18)
[2018-06-03] MEDS ORDERED: CEFT1VIA55 IV (12:01)
[2018-08-02] MEDS ORDERED: GUAI10SY3 PO (11:39)
[2018-08-02] MEDS ORDERED: LACT1CAP72 PO (11:39)
[2018-08-02] MEDS ORDERED: PRED20TA PO (11:39)
[2018-08-02] MEDS ORDERED: LEVO500T75 PO (11:39)
[2018-08-02] MEDS ORDERED: IPRA0.2S9 NEB (11:39)
[2018-08-02] MEDS ORDERED: ALBUT2 NEB (11:39)
== END 2018-03-09 12:48 | disposition home or self-care (01) ==
LOC: ER 10:31
DX: I95.9 Hypotension, unspecified (principal); R55 Syncope and collapse; E78.00 Pure hypercholesterolemia, unspecified
CPT/HCPCS: 36415; 70450; 71045; 80048; 80076; 84484; 85025; 85730; 93005; 96360; 99285; A4606; J7030; Z7610

== ENCOUNTER 2018-10-16 11:52 | Inpatient (IN) | payer MEDICARE, BC ==
[~2018-10-16] VITALS: Ht 167.6 cm; Wt 53.6 kg
[~2018-10-16 11:52] MED LIST changes: +ALBUT2 NEB; +ALLO100T PO; +ALPR1TAB2 PO; -AZIT250T PO; -FLUD0.1T PO; +GUAI10SY3 PO; +IPRA0.2S9 NEB; +LACT1CAP72 PO; +LEVO500T75 PO; +PRED20TA PO; -[UNRECOGNIZED DRUG - CODE] PO
--- NOTE | 2018-10-16 12:15 | NUR ---
BIB BROTHER FROM HOME,WEAKNESS/COUGH AND CHEST CONGESTION. BED 9, AOX2, VSS, RR EVEN AND UNLABORED. COUGH IS PRODUCTIVE. UNABLE TO ASSESS SPUTUM. SKIN WARM, DRY, INTACT, WITH SOME BRUISING ON BOTH ARMS. PT MADE COMFORTABLE AND READY FOR EVAL. WILL CONT TO MONITOR.
[2018-10-16] MEDS ORDERED: ALBUTEROL FS 2.5 MG/3 ML VIAL.NEB NEB ONE (12:30)
[2018-10-16] MEDS ORDERED: IV NS 0.9% 1,000 ML BAG IV ONE (12:30)
[2018-10-16] MEDS ORDERED: IPRATROPIUM NEB FS 0.5 MG/2.5 ML AMPUL.NEB NEB ONE (12:30)
[2018-10-16] MEDS ORDERED: IPRATROPIUM NEB FS 0.5 MG/2.5 ML AMPUL.NEB ONE (12:35)
[2018-10-16] MEDS ORDERED: ALBUTEROL FS 2.5 MG/3 ML VIAL.NEB ONE (12:35)
[2018-10-16 12:50] LABS: BASOPHILS # (AUTO) 0.1 /CMM (0.0-0.2); BASOPHILS % (AUTO) 0.6 % (0.0-2.0); EOSINOPHILS % (AUTO) 0.2 % (0.0-6.0); HEMATOCRIT 38 % (39-51); HEMOGLOBIN 12.4 g/dL (13.5-17.5); LYMPHOCYTES # (AUTO) 1.1 /CMM (0.8-4.8); LYMPHOCYTES % (AUTO) 7.8 % (20.0-44.0); MEAN CORPUSCULAR HGB CONC 32 g/dl (31.0-36.0); MEAN CORPUSCULAR VOLUME 88 fL (80-96); MONOCYTES # (AUTO) 0.8 /CMM (0.1-1.30); MONOCYTES % (AUTO) 6.1 % (2.0-12.0); NEUTROPHILS # (AUTO) 11.6 /CMM (1.8-8.9); NEUTROPHILS % (AUTO) 85.3 % (43.0-81.0); PLATELET COUNT (AUTO) 255 /CMM (150-450); RED BLOOD CELL COUNT(AUTO) 4.39 MIL/uL (4.5-6.0); WHITE BLOOD COUNT (AUTO) 13.6 K/uL (4.3-11.0)
[2018-10-16 13:18] LABS: CALCIUM, SERUM 9.3 mg/dL (8.5-10.1); CARBON DIOXIDE 25 mmol/L (21-32); CHLORIDE 113 mmol/L (98-107); CREATININE 1.6 mg/dL (0.6-1.3); GLUCOSE 110 mg/dL (74-106); SODIUM SERUM 147 mmol/L (136-145); UREA NITROGEN, BLOOD 33 mg/dL (7-18)
--- NOTE | 2018-10-16 13:21 | NUR ---
CALLED [facility] FOR STAT READ ON IMAGES
--- NOTE | 2018-10-16 13:28 | NUR ---
URINE COLLECTED VIA STRAIGHT CATH AND SENT TO STAT LAB.
[2018-10-16 13:31] LABS: ALANINE AMINOTRANSFERASE 11 U/L (12-78); ALBUMIN 2.7 g/dL (3.4-5.0); ALKALINE PHOSPHATASE 100 U/L (46-116); ASPARTATE AMINOTRANSFERASE 31 U/L (15-37); BILIRUBIN,DIRECT 0.1 mg/dL (0.0-0.2); BILIRUBIN,TOTAL 0.5 mg/dL (0.2-1.0)
--- NOTE | 2018-10-16 13:36 | NUR ---
PAGED [employer] FOR PANEL - RUG CUTTER HELPER MICHELLE ANAYA
--- NOTE | 2018-10-16 13:37 | NUR ---
CHANGED PT DIAPER AND MADE COMFORTABLE.
[2018-10-16 13:38] LABS: APPEARANCE,URINE Slightly Cloudy (CLEAR); BILIRUBIN,URINE Negative (NEGATIVE); BLOOD, URINE Large Ery/uL (NEGATIVE); COLOR,URINE Yellow (YELLOW); KETONES,URINE Negative (NEGATIVE); LEUKOCYTE ESTERASE ,URINE Moderate (NEGATIVE); NITRITE, URINE Positive (NEGATIVE); PH,URINE 5.5 (5.0-8.0); PROTEIN,URINE Negative (NEGATIVE); UGLUCOSE Negative (NEGATIVE); UROBILINOGEN,URINE 0.2 EU/dL (0.2)
[2018-10-16 13:46] LABS: TOTAL PROTEIN, SERUM 8.1 g/dL (6.4-8.2)
--- NOTE | 2018-10-16 13:54 | NUR ---
CALLED NURSE SUP FOR TELE BED
[2018-10-16] MEDS ORDERED: CEFTRIAXONE 1GM BAG (ER ONLY) 50 ML IV ONE ×2 (13:59→14:00)
[2018-10-16] MEDS ORDERED: AZITHROMYCIN 500 MG in IV D5W 250 ML IV ONE (14:00)
[2018-10-16 14:03] LABS: BACTERIA,URINE 3+ /HPF (None Seen); SQUAMOUS EPITHELIAL CELL,UR Few /HPF (None Seen); WBC,URINE 21-50 /HPF (0-3)
--- NOTE | 2018-10-16 14:25 | NUR ---
GAVE PT SIPS OF WATER. RESTING COMFORTABLY.
[2018-10-16] MEDS ORDERED: ALBUTEROL FS 2.5 MG/0.5 ML VIAL.NEB NEB PRN (14:30)
[2018-10-16] MEDS ORDERED: ONDANSETRON HCL/PF 4 MG/2 ML VIAL IVP PRN (14:30)
[2018-10-16] MEDS ORDERED: ZOLPIDEM TARTRATE 5 MG TABLET PO PRN (14:30)
[2018-10-16] MEDS ORDERED: MAG HYDROX/AL HYDROX/SIMETH 30 ML UDC PO PRN (14:30)
[2018-10-16] MEDS ORDERED: HYDROCODONE/APAP 5/325MG 1 EACH TABLET PO PRN (14:30)
[2018-10-16] MEDS ORDERED: ALPRAZOLAM 1 MG TABLET PO PRN (14:30)
[2018-10-16] MEDS ORDERED: MAGNESIUM HYDROXIDE 30 ML UDC PO PRN (14:30)
[2018-10-16] MEDS ORDERED: ACETAMINOPHEN 325 MG TABLET PO PRN (14:30)
[2018-10-16] MEDS ORDERED: Z GUARD REMEDY 2 OZ OINT TP PRN (14:30)
[2018-10-16] MEDS ORDERED: IPRATROPIUM NEB FS 0.5 MG/2.5 ML AMPUL.NEB NEB PRN (14:30)
--- NOTE | 2018-10-16 14:36 | NUR ---
BED 327-TELE
[2018-10-16] MEDS ORDERED: AZITHROMYCIN 500 MG VIAL ONE (14:44)
--- NOTE | 2018-10-16 15:13 | NUR ---
REPORT GIVEN TO LUCERO BRANCH.
--- NOTE | 2018-10-16 16:00 | NUR ---
TELE/RN OPENING NOTE THE PATIENT IS RECEIVED ON A GURNEY. ASSISTED THE PATIENT TO BED. PATIENT ALERT AND ORIENTED X1. DENIES PAIN AT THIS TIME. PATIENT IS RECEIVING OXYGEN AT 2L/MIN VIA NASAL CANNULA. DENIES SOB AT THIS TIME. LAC G 20 PATENT AND SALINE LOCKED. PATIENT IS GIVEN ORIENTATION TO THE ROOM/UNIT. BED LOW AND LOCKED. SIDE RAILS UP X3. BED ALARM ON. CALL LIGHT WITHIN REACH. WILL CONTINUE TO MONITOR.
--- NOTE | 2018-10-16 16:15 | NUR ---
MS/RN NOTE LACTIC ACID ELEVATED FROM 2.[address] MARTINEZ IS MADE AWARE WITH NO NEW ORDERS. PATIENT AFEBRILE. VITAL SIGNS WNL. IN NO APPARENT DISTRESS. WILL CONTINUE TO MONITOR.
[2018-10-16 16:30] VITALS: BP_SYST 100; BP_SYST 98; BP_DIAS 30; BP_DIAS 62
[2018-10-16] MEDS: IV NS 0.9% 1,000 ML IV PRN (16:41)
--- NOTE | 2018-10-16 17:30 | NUR ---
SKIN UPON ADMISSION THE PATIENT HAS LEFT BUTTOCK WOUND. PICTURE TAKE.
--- NOTE | 2018-10-16 18:15 | NUR ---
TELE/RN CLOSING NOTE PATIENT ALERT AND ORIENTED X1. DENIES PAIN AT THSI TIME. ON OXYGEN AT 2L/MIN VIA NASAL CANNULA. DENIES SOB. RESPIRATION REGULAR AND UNLABORED WITH EPISODES OF SOB. HOB ELEVATED TO KEEP LABS MAX EXTENDED. LAC G 20 PATENT AND NORMAL SALINE INFUSING PER ORDER. NO S/S INFILTRATION NOTED. BED LOW AND LOCKED. SIDE RAILS UP X3. BED ALARM ON. CALL LIGHT WITHIN REACH. WILL ENDORSE TO EVENTS AND PROMOTIONS ASSISTANT.
--- NOTE | 2018-10-16 19:10 | NUR ---
RESOURCE COORDINATOR OPENING NOTE Patient was seen dozing in bed but opened eyes to name. He is AAOx1, breathing comfortably on 2L O2 NC with no SOB, and no signs of acute distress. Telemonitor shows sinus rhythm at 89bpm. NS at 75ml/hr is running through the IV in the left AC with no signs of leaking or infiltration. Bed is low/locked for safety, two side rails up, and call rodriguez within reach. Will continue to monitor.
[2018-10-16 20:00] VITALS: BP 90/37
[2018-10-16 21:00] VITALS: BP 85/42
[2018-10-16] MEDS: methylPREDNISolone SOD SUCC 125 MG/2ML VIAL IV SCH (21:23)
[2018-10-16] MEDS: MIRTAZAPINE 15 MG TABLET PO SCH (21:23)
[2018-10-16] MEDS: DONEPEZIL 5 MG TABLET PO SCH (21:23)
--- NOTE | 2018-10-16 21:45 | NUR ---
INDEPENDENT AGENT MUSIC EDUCATION NOTE - Low BP, phone call to MD Granados spoke with Dr. Billy over the phone regarding patient's blood pressure. Patient's BP was 90/37, but this was prior to starting IVF that were ordered on dayshift. NS at 75ml/hr was started, then BP was checked again and found to be 85/42. All other vitals are stable - HR 85, RR 20, T 98.2F, O2 Sat 96%. Per Wenceslao, increase rate of IVF to 125ml/hr until BP stabilizes, then decrease back to 75ml/hr.
[2018-10-16 22:00] VITALS: BP 92/52
[2018-10-17] VITALS: BP 96/51
[2018-10-17 01:30] VITALS: BP 97/54
--- NOTE | 2018-10-17 01:30 | NUR ---
SHOP ESTIMATOR NOTE - BP Reviewed BP trend with charge nurseZuleyma. Highest BP since increasing fluids to 125ml/hr has been 97/54. Per charge nurse, since patient has history of CHF, BP is okay on the lower end of normal. No need to contact MD.
[2018-10-17] MEDS: IV NS 0.9% 1,000 ML IV PRN ×2 (03:10→13:36)
[2018-10-17 04:00] VITALS: BP_SYST 92; BP_DIAS 42; BP_DIAS 49
--- NOTE | 2018-10-17 04:00 | NUR ---
COMMERCIAL LOAN OFFICER NOTE - BP, MD call BP was found to be 92/49. Per Wenceslao, keep NS at 125ml/hr. As long as MAP is 65 or higher, then patient is okay as is.
[2018-10-17] MEDS: methylPREDNISolone SOD SUCC 125 MG/2ML VIAL IV SCH ×3 (05:28→21:49)
[2018-10-17 06:44] LABS: BASOPHILS % (AUTO) 0.1 % (0.0-2.0); HEMATOCRIT 30 % (39-51); HEMOGLOBIN 9.5 g/dL (13.5-17.5); LYMPHOCYTES # (AUTO) 0.8 /CMM (0.8-4.8); MEAN CORPUSCULAR HGB CONC 32 g/dl (31.0-36.0); MEAN CORPUSCULAR VOLUME 88 fL (80-96); MONOCYTES # (AUTO) 0.1 /CMM (0.1-1.30); MONOCYTES % (AUTO) 0.7 % (2.0-12.0); NEUTROPHILS # (AUTO) 6.6 /CMM (1.8-8.9); NEUTROPHILS % (AUTO) 88.2 % (43.0-81.0); PLATELET COUNT (AUTO) 214 /CMM (150-450); RED BLOOD CELL COUNT(AUTO) 3.34 MIL/uL (4.5-6.0); WHITE BLOOD COUNT (AUTO) 7.5 K/uL (4.3-11.0)
--- NOTE | 2018-10-17 07:03 | NUR ---
RN OPENING NOTES RECEIVED PATIENT IN BED RESTING, A/OX1-2, CONFUSED AND FORGETFUL. NO ACUTE DISTRESS, NO SOB, DENIED PAIN OR DISCOMFORT. IV SITE INTACT AND PATENT. KEPT PATIENT SAFE AND COMFORTABLE. BED IN LOW/LOCKED POSITION, SIDERAILS UPX2, CALL LIGHT IN REACH, WILL CONTINUE TO MOINOTR ACCORDINGLY.
[2018-10-17 07:06] LABS: CARBON DIOXIDE 21 mmol/L (21-32); CHLORIDE 114 mmol/L (98-107); CREATININE 1.2 mg/dL (0.6-1.3); GLUCOSE 162 mg/dL (74-106); MAGNESIUM 1.9 mg/dL (1.8-2.4); POTASSIUM 4.3 mmol/L (3.5-5.1); SODIUM SERUM 144 mmol/L (136-145); UREA NITROGEN, BLOOD 28 mg/dL (7-18)
--- NOTE | 2018-10-17 07:09 | NUR ---
BULK SEALER CLOSING NOTE Patient AOx1, breathing comfortably on 2L O2 NC, no s/s of acute distress. NS at 125ml/hr is running through the left AC. Per Andonian, BP has been monitored and MAP has been equal or greater to 65. Telemonitor shows NSR in the 70s. Patient slept well overnight and all needs were met. Patient care endorsed to day shift RN.
[2018-10-17 07:11] LABS: CHOLESTEROL 102 mg/dL (<200); HDL CHOLESTEROL 40 mg/dL (40-60); LDL 59 mg/dL (0-99); THYROID STIMULATING HORMONE 1.222 uIU/mL (0.358-3.74); TRIGLYCERIDES 27 mg/dL (30-150)
[2018-10-17 08:00] VITALS: BP 94/51
[2018-10-17] MEDS: TAMSULOSIN 0.4 MG CAP.SR.24H PO SCH (09:01)
[2018-10-17] MEDS: ALLOPURINOL 100 MG TABLET PO SCH (09:02)
[2018-10-17] MEDS: ATORVASTATIN 10 MG TABLET PO SCH (09:02)
--- NOTE | 2018-10-17 11:58 | NUR ---
WOUND CARE CONSULT: PT PRESENTS WITH LEFT BUTTOCK NECROTIC WOUND, UNKNOWN ETIOLOGY, PRESENT ON ADMISSION. RECOMMENDATIONS MADE FOR SKIN PROTECTION AND CARE. DISCUSSED WITH NURSING STAFF. RECOMMEND SURGICAL CONSULT. WILL SEE PRN. DE LOS SANTOS IN AGREEMENT WITH PLAN OF CARE. Addendum: 10/17/18 at 1200 by LITTLE PEREZ WNDNU Amended: Links added.
[2018-10-17] MEDS ORDERED: CEFTRIAXONE 1 G in IV D5W 50 ML IV SCH (14:00)
[2018-10-17] MEDS: AZITHROMYCIN 500 MG in IV D5W 250 ML IV SCH (15:55)
[2018-10-17 16:00] VITALS: BP 92/41
--- NOTE | 2018-10-17 19:20 | NUR ---
RN CLOSING NOTES PATIENT IN STABLE CONDITION. ALL NEEDS ATTENDED AND PROVIDED. ALL DUE MEDICATIONS GIVEN ORDERED. WOUND CARE RENDERED. TURNED AND REPOSITIONED PATIENT EVERY 2 HRS NEEDED. KEPT PATIENT SAFE AND COMFORTABLE. BED IN LOW/LOCKED POSITION, SIDERAILS UP, CALL LIGHT IN REACH. BED ALARM ON. ENDORSED TO NIGHT RN FOR ALEENA.
--- NOTE | 2018-10-17 19:20 | NUR ---
MS RN OPENING NOTE Patient was seen sitting upright in bed watching TV, he is AAOx1, breathing comfortably on 2L O2 NC with no SOB, and no signs of acute distress. NS at 80ml/hr is running through the IV in the left AC with no signs of leaking or infiltration. Patient requested Miralax be administered along with his evening medications; patient states it's been a couple of days since last BM, and he is feeling constipated. I acknowledged his request. Bed is low/locked for safety, two side rails up, and call rodriguez within reach. Patient has no other needs at this time. Will continue to monitor.
[2018-10-17 20:00] VITALS: BP 92/50
[2018-10-17] MEDS: MIRTAZAPINE 15 MG TABLET PO SCH (21:50)
[2018-10-17] MEDS: DONEPEZIL 5 MG TABLET PO SCH (21:50)
[2018-10-18] MEDS: methylPREDNISolone SOD SUCC 125 MG/2ML VIAL IV SCH ×3 (05:11→21:04)
[2018-10-18] MEDS: IV NS 0.9% 1,000 ML IV PRN (06:48)
--- NOTE | 2018-10-18 07:00 | NUR ---
MS RN CLOSING NOTE Patient is resting quietly in bed with no s/s of acute distress. Patient slept well overnight with no complications. All patient needs have been attended to, and patient care has been endorsed to day shift RN.
[2018-10-18 07:45] LABS: BASOPHILS % (AUTO) 0.2 % (0.0-2.0); HEMATOCRIT 32 % (39-51); HEMOGLOBIN 10.3 g/dL (13.5-17.5); LYMPHOCYTES % (AUTO) 6.6 % (20.0-44.0); MEAN CORPUSCULAR HGB CONC 32 g/dl (31.0-36.0); MEAN CORPUSCULAR VOLUME 88 fL (80-96); MONOCYTES # (AUTO) 0.2 /CMM (0.1-1.30); MONOCYTES % (AUTO) 1.6 % (2.0-12.0); NEUTROPHILS # (AUTO) 13.3 /CMM (1.8-8.9); NEUTROPHILS % (AUTO) 91.6 % (43.0-81.0); PLATELET COUNT (AUTO) 224 /CMM (150-450); RED BLOOD CELL COUNT(AUTO) 3.66 MIL/uL (4.5-6.0); WHITE BLOOD COUNT (AUTO) 14.5 K/uL (4.3-11.0)
[2018-10-18 08:00] VITALS: BP 102/59
[2018-10-18 08:01] LABS: CALCIUM, SERUM 8.3 mg/dL (8.5-10.1); CARBON DIOXIDE 21 mmol/L (21-32); CHLORIDE 112 mmol/L (98-107); CREATININE 1.4 mg/dL (0.6-1.3); GLUCOSE 160 mg/dL (74-106); MAGNESIUM 2.3 mg/dL (1.8-2.4); PHOSPHORUS 2.2 mg/dL (2.5-4.9); POTASSIUM 4.2 mmol/L (3.5-5.1); SODIUM SERUM 145 mmol/L (136-145); UREA NITROGEN, BLOOD 33 mg/dL (7-18)
[2018-10-18] MEDS: TAMSULOSIN 0.4 MG CAP.SR.24H PO SCH (09:22)
[2018-10-18] MEDS: ALLOPURINOL 100 MG TABLET PO SCH (09:23)
[2018-10-18] MEDS: ATORVASTATIN 10 MG TABLET PO SCH (09:23)
[2018-10-18] MEDS ORDERED: K PHOS NEUTRAL 250 MG TABLET PO ONE (11:00)
[2018-10-18] MEDS: ENSURE ENLIVE 237 ML LIQUID (VANILLA) PO SCH ×2 (12:56→17:05)
[2018-10-18] MEDS: LEVOFLOXACIN 750 MG /D5W 150ML 750 MG in PREMIX 1 EA IV SCH (15:10)
[2018-10-18 16:00] VITALS: BP 92/50
[2018-10-18] MEDS: AZITHROMYCIN 500 MG in IV D5W 250 ML IV SCH (17:06)
--- NOTE | 2018-10-18 19:20 | NUR ---
RN INITIAL NOTES Patient received in bed, alert, oriented x 1. !;! sitter at bedside. Breathing even and unlabored. Not in any distress. On O2 at 2L via NC. Peripheral IV infusing at 80mL/hr. No complaints as of this time. Call rodriguez within reach. Bed in low, locked position. Patient stable as endorsed byt the morning shift RN. Will continue to monitor accordingly
[2018-10-18 20:00] VITALS: BP_SYST 102; BP_DIAS 51; BP_DIAS 57
--- NOTE | 2018-10-18 20:43 | NUR ---
RN NOTES Informed on-call that patient is ESBL(+). No orders as of now. As per on-call, "ID doctor will make changes with the antibiotics tomorrow."
--- NOTE | 2018-10-18 20:45 | NUR ---
RN NOTES ON-CALL INFORMED THAT PATIENT HAS COUGH. ORDERED ROBITUSSIN DM Q6H PRN FOR COUGH. ORDERS NOTED AND CARRIED OUT
[2018-10-18] MEDS ORDERED: GUAIFENESIN/D-METHORPHAN HB 5 ML UDC PO PRN (21:00)
[2018-10-18] MEDS: MIRTAZAPINE 15 MG TABLET PO SCH (21:05)
[2018-10-18] MEDS: DONEPEZIL 5 MG TABLET PO SCH (21:06)
[2018-10-19] MEDS: methylPREDNISolone SOD SUCC 125 MG/2ML VIAL IV SCH (04:59)
[2018-10-19 06:58] LABS: APPEARANCE,URINE CLEAR (CLEAR); BILIRUBIN,URINE NEGATIVE (NEGATIVE); BLOOD, URINE SMALL Ery/uL (NEGATIVE); COLOR,URINE YELLOW (YELLOW); KETONES,URINE NEGATIVE (NEGATIVE); LEUKOCYTE ESTERASE ,URINE SMALL (NEGATIVE); NITRITE, URINE NEGATIVE (NEGATIVE); PH,URINE 5.5 (5.0-8.0); PROTEIN,URINE NEGATIVE (NEGATIVE); UGLUCOSE NEGATIVE (NEGATIVE); UROBILINOGEN,URINE 0.2 EU/dL (0.2)
[2018-10-19 07:18] LABS: CREATININE, URINE 44.4 MG/DL (30.0-125.0); URINE TOTAL PROTEIN 17.7 mg/dL (0-11.9)
--- NOTE | 2018-10-19 07:33 | NUR ---
RN CLOSING NOTES Patient sitting up in bed, alert, oriented x 1. On supplemental O2 at 2L. Not in any distress. No complaints as of this time. Peripheral IV infusing at 80mL/hr. All needs attended to. All due medications given as ordered. Call rodriguez within reach. Bed in low, locked position. Endorsed ALEENA to AM RN
--- NOTE | 2018-10-19 07:37 | NUR ---
MS RN OPENING NOTE RECEIVED PT IN BED, ALERT AND ORIENTED X1. NO ACUTE DISTRESS NOTED AT THIS TIME, BREATHING IS EVEN AND UNLABORED ON 2L NC. L AC #20G IV INFUSING NS @ 80ML/HR WITHOUT REDNESS OR SWELLING. ASPIRATION PRECAUTIONS MAINTAINED. ALL NEEDS ATTENDED TO. BED IS LOCKED AND IN LOWEST POSITION, SIDE RAILS UP X2, BED ALARM ON, CALL LIGHT WITHIN REACH.
[2018-10-19 08:00] VITALS: BP 114/62
[2018-10-19 08:05] LABS: BASOPHILS % (AUTO) 0.3 % (0.0-2.0); HEMATOCRIT 30 % (39-51); HEMOGLOBIN 9.6 g/dL (13.5-17.5); LYMPHOCYTES # (AUTO) 0.9 /CMM (0.8-4.8); LYMPHOCYTES % (AUTO) 6.4 % (20.0-44.0); MEAN CORPUSCULAR HGB CONC 32 g/dl (31.0-36.0); MEAN CORPUSCULAR VOLUME 89 fL (80-96); MONOCYTES # (AUTO) 0.3 /CMM (0.1-1.30); MONOCYTES % (AUTO) 2.4 % (2.0-12.0); NEUTROPHILS # (AUTO) 12.7 /CMM (1.8-8.9); NEUTROPHILS % (AUTO) 90.9 % (43.0-81.0); PLATELET COUNT (AUTO) 229 /CMM (150-450); RED BLOOD CELL COUNT(AUTO) 3.39 MIL/uL (4.5-6.0); WHITE BLOOD COUNT (AUTO) 13.9 K/uL (4.3-11.0)
[2018-10-19 08:07] LABS: ALANINE AMINOTRANSFERASE 29 U/L (12-78); ALKALINE PHOSPHATASE 75 U/L (46-116); ASPARTATE AMINOTRANSFERASE 26 U/L (15-37); BILIRUBIN,TOTAL 0.1 mg/dL (0.2-1.0); CARBON DIOXIDE 21 mmol/L (21-32); CHLORIDE 111 mmol/L (98-107); CREATININE 1.4 mg/dL (0.6-1.3); GLUCOSE 123 mg/dL (74-106); MAGNESIUM 2.1 mg/dL (1.8-2.4); PHOSPHORUS 2.2 mg/dL (2.5-4.9); POTASSIUM 4.3 mmol/L (3.5-5.1); SODIUM SERUM 143 mmol/L (136-145); TOTAL PROTEIN, SERUM 6.3 g/dL (6.4-8.2); UREA NITROGEN, BLOOD 39 mg/dL (7-18)
[2018-10-19 08:09] LABS: IRON, SERUM 67 ug/dl (50-175); TOTAL IRON BINDING CAPACITY 168 ug/dl (250-450)
[2018-10-19 08:11] LABS: FERRITIN 218 ng/mL (8-388)
[2018-10-19 08:33] LABS: EOSINOPHIL,URINE None Seen
[2018-10-19] MEDS: ALLOPURINOL 100 MG TABLET PO SCH (09:06)
[2018-10-19] MEDS: TAMSULOSIN 0.4 MG CAP.SR.24H PO SCH (09:06)
[2018-10-19] MEDS: ATORVASTATIN 10 MG TABLET PO SCH (09:06)
[2018-10-19] MEDS: ENSURE ENLIVE 237 ML LIQUID (VANILLA) PO SCH ×3 (09:07→17:22)
[2018-10-19] MEDS: IV NS 0.9% 1,000 ML IV PRN (11:59)
[2018-10-19] MEDS ORDERED: K PHOS NEUTRAL 250 MG TABLET PO ONE (13:00)
[2018-10-19] MEDS ORDERED: LIDOCAINE 2% JEL 5 ML TUBE MC ONE (15:30)
[2018-10-19] MEDS: AZITHROMYCIN 500 MG in IV D5W 250 ML IV SCH (15:49)
[2018-10-19 16:00] VITALS: BP 101/57
--- NOTE | 2018-10-19 16:00 | NUR ---
MS LUCERO CONSENT CALLED P JIMMY (BROTHER) AT [phone] TO OBTAIN TELEPHONE CONSENT FOR EXCISIONAL DEBRIDEMENT TOMORROW MORNING. DID NOT ANSWER THE PHONE, LEFT VOICEMAIL TO CALL BACK AT [phone] FOR TELEPHONE CONSENT.
--- NOTE | 2018-10-19 16:30 | NUR ---
MS RN CONSENT TELEPHONE CONSENT FOR EXCISIONAL DEBRIDEMENT OF LEFT BUTTOCK WOUND OBTAINED WITH 2 RN VERIFICATION FROM BROTHER DANIEL JIMMY. CONSENT SIGNED AND PLACED IN CHART.
--- NOTE | 2018-10-19 16:59 | NUR ---
MS RN NEW IV INSERTED L AC #20G IV FOUND TO BE SWOLLEN AND PAINFUL WHEN FLUSHED. REMOVED, ELEVATED EXTREMITY ON 1 PILLOW AND PLACED ICE PACK. NEW IV INSERTED AT THE R FA #24G AND IS PATENT, CLEAN, DRY AND INTACT.
[2018-10-19 17:28] LABS: OCCULT BLOOD STOOL NEGATIVE (NEGATIVE)
--- NOTE | 2018-10-19 18:28 | NUR ---
MS RN CLOSING NOTE PT IN BED, ALERT AND ORIENTED X1-2. NO ACUTE DISTRESS NOTED AT THIS TIME, BREATHING IS EVEN AND UNLABORED ON 2L NC. R FA #24G IV INFUSING NS @ 80ML/HR WITHOUT REDNESS OR SWELLING. ASPIRATION PRECAUTIONS MAINTAINED. WOUND CARE PROVIDED ORDERED. ADLS PROVIDED AND PT ASSISTED TO TURN AND REPOSITION Q2H FOR THE DURATION OF THE SHIFT. ALL NEEDS ATTENDED TO. BED IS LOCKED AND IN LOWEST POSITION, SIDE RAILS UP X2, BED ALARM ON, CALL LIGHT WITHIN REACH.
--- NOTE | 2018-10-19 19:05 | NUR ---
RN INITIAL NOTES Patient received in bed, alert, oriented x 1. Breathing even and unlabored. Not in any distress. Peripheral IV on RFA infusing at 80mL/hr. No complaints as of this time. Call rodriguez within reach. Bed in low, locked position. Patient stable as endorsed by the morning shift RN. Will continue to monitor accordingly
[2018-10-19 20:00] VITALS: BP 104/52
[2018-10-19] MEDS: DONEPEZIL 5 MG TABLET PO SCH (21:36)
[2018-10-19] MEDS: MIRTAZAPINE 15 MG TABLET PO SCH (21:36)
--- NOTE | 2018-10-19 22:02 | NUR ---
RN NOTES Supplies for wound debridement prepared. Everything except silver nitrate sticks at bedside.
--- NOTE | 2018-10-20 06:52 | NUR ---
MS RN CLOSING NOTE PATIENT IN BED, ALERT AND ORIENTED X1-2. NO ACUTE DISTRESS NOTED AT THIS TIME, BREATHING IS EVEN AND UNLABORED ON 2L NC. R FA #24G IV INFUSING NS @ 80ML/HR WITHOUT REDNESS OR SWELLING. ASPIRATION PRECAUTIONS MAINTAINED. WOUND CARE PROVIDED ORDERED. PATIENT ASSISTED TO TURN AND REPOSITION Q2H FOR THE DURATION OF THE SHIFT. ALL NEEDS ATTENDED TO. BED IS LOCKED AND IN LOWEST POSITION, SIDE RAILS UP X2, BED ALARM ON, CALL LIGHT WITHIN REACH. WILL ENDORSE ALEENA TO ONCOMING RN
--- NOTE | 2018-10-20 07:30 | NUR ---
MS RN OPENING NOTES RECEIVED PATIENT IN STABLE CONDITION. IN NO APPARENT DISTRESS. BEDSIDE RAILS ARE UPX2. BED IS LOCKED AND LOWERED. CALL LIGHT IS WITHIN REACH. IV LINE IS INTACT AND PATENT. WILL CONTINUE TO MONITOR PATIENT.
[2018-10-20 08:00] VITALS: BP 120/60
[2018-10-20 08:28] LABS: BASOPHILS % (AUTO) 0.2 % (0.0-2.0); EOSINOPHILS % (AUTO) 0.6 % (0.0-6.0); HEMATOCRIT 32 % (39-51); HEMOGLOBIN 10.3 g/dL (13.5-17.5); LYMPHOCYTES # (AUTO) 1.6 /CMM (0.8-4.8); LYMPHOCYTES % (AUTO) 16.1 % (20.0-44.0); MEAN CORPUSCULAR HGB CONC 32 g/dl (31.0-36.0); MEAN CORPUSCULAR VOLUME 88 fL (80-96); MONOCYTES # (AUTO) 0.8 /CMM (0.1-1.30); NEUTROPHILS # (AUTO) 7.5 /CMM (1.8-8.9); NEUTROPHILS % (AUTO) 75.1 % (43.0-81.0); PLATELET COUNT (AUTO) 217 /CMM (150-450); RED BLOOD CELL COUNT(AUTO) 3.65 MIL/uL (4.5-6.0)
[2018-10-20 08:34] LABS: CALCIUM, SERUM 7.8 mg/dL (8.5-10.1); CARBON DIOXIDE 21 mmol/L (21-32); CHLORIDE 111 mmol/L (98-107); CREATININE 1.3 mg/dL (0.6-1.3); GLUCOSE 87 mg/dL (74-106); PHOSPHORUS 2.2 mg/dL (2.5-4.9); POTASSIUM 3.9 mmol/L (3.5-5.1); SODIUM SERUM 143 mmol/L (136-145); UREA NITROGEN, BLOOD 35 mg/dL (7-18)
[2018-10-20] MEDS: ATORVASTATIN 10 MG TABLET PO SCH (09:00)
[2018-10-20] MEDS: TAMSULOSIN 0.4 MG CAP.SR.24H PO SCH (09:00)
[2018-10-20] MEDS: ENSURE ENLIVE 237 ML LIQUID (VANILLA) PO SCH ×3 (09:00→17:33)
[2018-10-20] MEDS: ALLOPURINOL 100 MG TABLET PO SCH (09:00)
[2018-10-20] MEDS: predniSONE 20 MG TABLET PO SCH (09:15)
[2018-10-20] MEDS ORDERED: K PHOS NEUTRAL 250 MG TABLET PO ONE (13:00)
[2018-10-20] MEDS: LEVOFLOXACIN 750 MG /D5W 150ML 750 MG in PREMIX 1 EA IV SCH (14:13)
[2018-10-20] MEDS: AZITHROMYCIN 500 MG in IV D5W 250 ML IV SCH (15:20)
[2018-10-20 16:00] VITALS: BP 108/58
--- NOTE | 2018-10-20 18:27 | NUR ---
MS RN CLOSING NOTES PATIENT IS IN STABLE CONDITION. IN NO APPARENT DISTRESS. BEDSIDE RAILS ARE UPX2. BED IS LOCKED AND LOWERED. CALL LIGHT IS WITHIN REACH. IV LINE IS INTACT AND PATENT. ALL NEEDS WERE MET. WILL ENDORSE CARE TO EMPLOYMENT CASE MANAGER NURSE FOR ALEENA.
--- NOTE | 2018-10-20 19:30 | NUR ---
MS DARREN INITIAL NOTES RECEIVED REPORT FROM AM SHIFT RAMONA AT THE BEDSIDE . PT AWAKE AND ALERT BUT NOTICED SOME CONFUSION . RE-ORIENTED WHERE HE AT AND HOW TO USED THE CALL LIGHT SYSTEM. BREATHING EVEN AND NON-LABORED NOT IN ANY ACUTE DISTRESS NOTED AT THIS TIME . NOTICED PT HEARD OF HEARING. SKIN WARM AND DRY TO TOUCH. KEPT HIM WARM AND COMFORTABLE AT ALL TIMES. ON SITTING POSITION WITH SIDE RAILS X2 UP AND BED ALARM SET FOR PT SAFETY. CONTACT ISOLATION IMPLEMENTED AND OBSERVED. WILL CONTINUE MONITORING. PLACE CALL LIGHT AT REACH.
[2018-10-20 20:00] VITALS: BP 114/64
[2018-10-20] MEDS: MIRTAZAPINE 15 MG TABLET PO SCH (21:43)
[2018-10-20] MEDS: DONEPEZIL 5 MG TABLET PO SCH (21:44)
--- NOTE | 2018-10-20 22:00 | NUR ---
MS DARREN NOTES ROUTINE MEDS GIVEN PO ORDERED, SNACKS ALSO SERVED. NO ASPIRATION NOTED. KEPT HIM WARM AND COMFORTABLE AT ALL TIMES.
--- NOTE | 2018-10-21 | NUR ---
MS ELECTRICIAN HELPER AUTOMOTIVE NOTES PT SLEEPING AT THIS TIME BUT AROUSE TO TOUCH , NO SIGNS OF ANY ACUTE DISTRESS NOTED. IVF STILL INFUSING , KEP THIM WARM AND COMFORTABLE AT ALL TIMES. PLACE CALL LIGHT AT REACH.
[2018-10-21] MEDS: IV NS 0.9% 1,000 ML IV PRN (05:02)
--- NOTE | 2018-10-21 07:04 | NUR ---
MS MANAGER ASSEMBLY CLOSING NOTES MORNING CARE RENDERED AND NOTICED IV LINE INFILTRATED , REMOVED AND A NEW LINE INSERTED ON HIS RIGHT WRIST GAUGE 22 . SLEPT WELL AND STABLE YOKO THE NIGHT. DUE MEDS GIVEN AND ALL NEEDS MET. KEPT HIM WARM AND COMFORTABLE AT ALL TIMES STILL ON ISOLATION PRECAUTION. PT RESTING AT THIS TIME WITH SIDE RAILS X3 UP AND BED IN LOW AND LOCK IN POSITION WITH BED ALARM SET FOR PT SAFETY. WILL ENDORSE TO AM NURSE FOR CONTINUITY OF CARE.
[2018-10-21 08:00] VITALS: BP 118/62
[2018-10-21] MEDS: predniSONE 20 MG TABLET PO SCH (08:04)
[2018-10-21] MEDS: ATORVASTATIN 10 MG TABLET PO SCH (08:10)
[2018-10-21] MEDS: TAMSULOSIN 0.4 MG CAP.SR.24H PO SCH (08:10)
[2018-10-21] MEDS: ALLOPURINOL 100 MG TABLET PO SCH (08:10)
[2018-10-21] MEDS: ENSURE ENLIVE 237 ML LIQUID (VANILLA) PO SCH ×3 (08:14→17:28)
[2018-10-21] MEDS ORDERED: K PHOS NEUTRAL 250 MG TABLET PO ONE (11:30)
--- NOTE | 2018-10-21 14:58 | NUR ---
CALLED PHARMACY TO PROVIDE AZITHROMYCIN. PHARMACY WILL PROVIDE.
[2018-10-21 16:00] VITALS: BP 120/57
[2018-10-21] MEDS: AZITHROMYCIN 500 MG in IV D5W 250 ML IV SCH (16:16)
--- NOTE | 2018-10-21 18:57 | NUR ---
MS RN CLOSING NOTES: PT IS IN STABLE CONDITION. IN NO APPARENT DISTRESS. BEDSIDE RAILS UP X2. BED IS LOCKED AND LOWERED. IV LINE IS INTACT AND PATENT. CALL LIGHT IS WITHIN REACH. ALL NEEDS WERE MET. WILL ENDORSE CARE TO AREA LOSS PREVENTION MANAGER NURSE FOR ALEENA.
--- NOTE | 2018-10-21 20:00 | NUR ---
PT NOTED TO BE A/A BUT CONFUSED. EASILY UPSET, BUT NO DISTRESS NOTED.
[2018-10-21 21:41] VITALS: BP 99/47
[2018-10-21] MEDS: MIRTAZAPINE 15 MG TABLET PO SCH (22:23)
[2018-10-21] MEDS: DONEPEZIL 5 MG TABLET PO SCH (22:23)
[2018-10-21] MEDS ORDERED: ALBUTEROL FS 2.5 MG/0.5 ML VIAL.NEB NEB PRN (22:30)
--- NOTE | 2018-10-22 02:34 | NUR ---
IV INFILTRATED AT [place], REFUSED TO ALLOW ANYONE TO TRY AN IV., AT [place] OR LATER. WILL TRY AGAIN LATER.
--- NOTE | 2018-10-22 07:00 | NUR ---
refused to allow one to restart iv.was getting verbally abusive left alone for now.
--- NOTE | 2018-10-22 07:59 | NUR ---
RN OPENING NOTES RECEIVED PT. A/OX1, PT IS AWAKE AND RESTING IN BED. NO S/S OF RESP DISTRESS/SOB. NO C/O PAIN. PT IS S/P I&D OF L BUTTOCK WOUND ON 10/21/18, DRESSING INTACT. PER ENERGY PROFESSIONAL REPORT, PT'S IV ACCESS INFILTRATED IN EARLY AM, PT REFUSING REINSERTION OF IV ACCESS. WILL F/U AND PROVIDE EDUCATION ON IV ABX THERAPY. SAFETY MEASURES IN PLACE, CALL LIGHT WITHIN REACH. WILL CONTINUE TO MONITOR.
[2018-10-22 08:00] VITALS: BP 137/77
[2018-10-22] MEDS: ENSURE ENLIVE 237 ML LIQUID (VANILLA) PO SCH ×2 (09:00→13:00)
[2018-10-22] MEDS: TAMSULOSIN 0.4 MG CAP.SR.24H PO SCH (09:08)
[2018-10-22] MEDS: ALLOPURINOL 100 MG TABLET PO SCH (09:08)
[2018-10-22] MEDS: ATORVASTATIN 10 MG TABLET PO SCH (09:08)
[2018-10-22] MEDS: predniSONE 20 MG TABLET PO SCH (09:08)
[2018-10-22] MEDS: LEVOFLOXACIN 750 MG /D5W 150ML 750 MG in PREMIX 1 EA IV SCH (14:29)
[2018-10-22 16:00] VITALS: BP 124/67
[2018-10-22] MEDS ORDERED: LEVO500T75 PO (16:09)
--- NOTE | 2018-10-22 18:21 | NUR ---
DISCHARGE NOTE PT DISCHARGED TO [facility]. REPORT CALLED AND GIVEN TO ADMITTING RN. DISCHARGE TEACHING PERFORMED, PT UNABLE TO VERBALIZE UNDERSTANDING. IV ACCESS AND ID BAND REMOVED. SECOND LICENSED RN ABLE TO COSIGN DC INSTRUCTIONS, BELONGINGS SHEET. BOTH COPIED AND PLACED IN CHART. PT VERBALLY ABUSIVE THREATENING TO BE COMBATIVE TOWARDS STAFF, HIGHLY AGITATED, REFUSING WOUND PHOTOS. PT LEFT HOSPITAL IN PRIVATE AMBULANCE WITH MEDICAL TRANSPORTATION.
== END 2018-10-22 17:15 | DRG 853 ==
LOC: ER 11:57 → TELE 14:26 → MED 10-17 10:32
PROVIDERS: ATTEND Nurse Practitioner Acute Care
PROC: 0JB90ZZ Excision of Buttock Subcutaneous Tissue and Fascia, Open Approach (ICD-10-PCS; principal; 2018-10-20)
DX: A41.9 Sepsis, unspecified organism (principal); L89.323 Pressure ulcer of left buttock, stage 3; N17.0 Acute kidney failure with tubular necrosis; I50.33 Acute on chronic diastolic (congestive) heart failure; E43 Unspecified severe protein-calorie malnutrition; J18.9 Pneumonia, unspecified organism; N39.0 Urinary tract infection, site not specified; I13.0 Hypertensive heart and chronic kidney disease with heart failure and stage 1 through stage 4 chronic kidney disease, or unspecified chronic kidney disease; E87.2 Acidosis; D68.69 Other thrombophilia; Z68.1 Body mass index [BMI] 19.9 or less, adult; J44.0 Chronic obstructive pulmonary disease with (acute) lower respiratory infection; N18.9 Chronic kidney disease, unspecified; E86.1 Hypovolemia; B96.1 Klebsiella pneumoniae [K. pneumoniae] as the cause of diseases classified elsewhere; Z16.12 Extended spectrum beta lactamase (ESBL) resistance; B96.89 Other specified bacterial agents as the cause of diseases classified elsewhere; F03.90 Unspecified dementia, unspecified severity, without behavioral disturbance, psychotic disturbance, mood disturbance, and anxiety; M81.0 Age-related osteoporosis without current pathological fracture; M10.9 Gout, unspecified; N40.0 Benign prostatic hyperplasia without lower urinary tract symptoms; D64.9 Anemia, unspecified; I70.0 Atherosclerosis of aorta; E78.00 Pure hypercholesterolemia, unspecified; E83.39 Other disorders of phosphorus metabolism; E86.0 Dehydration
CPT/HCPCS: 36415; 36600; 71045-TC; 80048-TC; 80053-TC; 80061-TC; 80076-TC; 81000-TC; 82272-TC; 82570-TC; 82728-TC; 82803-TC; 83540-TC; 83605-TC; 83735-TC; 84100-TC; 84155-TC; 84300-TC; 84443-TC; 84484-TC; 85025-TC; 85730-TC; 87040-TC; 87081-TC; 87086-TC; 87186-TC; 87400; 97110-TC; 97112-TC; 97116-TC; 97530-TC; A4216; A4606; A6402; G0378; J0456; J0696; J1956; J2930; J7030; J7060; Z7610